=== PATIENT | male | born 2000 | race Caucasian/White ===

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

== ENCOUNTER → 2019-02-01 | Outpatient (REF) | payer OTHER | LOC: M LAB REF 13:07 | PROVIDERS: ATTEND Nurse Practitioner Pediatrics | DX: R19.5 Other fecal abnormalities (principal) ==

== ENCOUNTER → 2019-02-05 | Outpatient (CLI) | payer BC, OTHER ==
--- NOTE | 2019-02-06 03:31 | REP ---
Clinical: Fecal stasis. Technique: Two views of the abdomen and pelvis. Findings: Fecal impaction at the rectum is suggested and should be correlated clinically. No evidence for bowel obstruction or perforation. No organomegaly. No abnormal calcifications. Skeletal structures are intact. Impression: Findings cannot exclude fecal impaction at the rectum. Electronically Signed by Anthony Bernard MD 02/06/2019 03:23 A
== END ==
LOC: M RAD 13:54
PROVIDERS: ATTEND Nurse Practitioner Pediatrics
DX: N50.89 Other specified disorders of the male genital organs (principal); R19.5 Other fecal abnormalities

== ENCOUNTER → 2019-02-08 | Outpatient (CLI) | payer BC, OTHER ==
--- NOTE | 2019-02-09 05:05 | REP ---
Clinical: Enlarges left testicle. Technique: Real time varner scale and color Doppler evaluation using linear high frequency transducer. Findings: The bilateral testicles are normal in contour, size, echogenicity, and vascularity without intratesticular mass lesion, infectious/inflammatory process, or torsion. Right epididymal head cyst measures 14 x 7 x 8 mm. Left epididymal head cyst measures 1 x 1 x 2 mm. No significant hydrocele. No varicocele. Right testicle measures 5.2 x 2.4 x 2.8 cm. Left testicle measures 5.1 x 2.9 x 3.0 cm. Impression: Right epididymal head cyst. Otherwise essentially normal examination. Electronically Signed by Anthony Bernard MD 02/09/2019 04:57 A
== END ==
LOC: M RAD 15:48
PROVIDERS: ATTEND Nurse Practitioner Pediatrics
DX: N50.3 Cyst of epididymis (principal)

== ENCOUNTER → 2019-04-12 | Outpatient (CLI) | payer BC, OTHER ==
[2019-04-12 12:05] LABS: BASO % 0.5 % (0.0-1.0); EOS # 0.2 10^3/uL (0.0-0.50); EOS % 1.8 % (0.0-3.0); HEMATOCRIT 43.4 % (42.0-52.0); HEMOGLOBIN 14.1 g/dl (13.5-17.5); LYMPH # 3.1 10^3/uL (1.5-6.5); MEAN CORPUSCULAR HEMOGLOBIN 27.6 pg (27.0-33.0); MEAN CORPUSCULAR HGB CONC 32.5 g/dl (32.0-36.5); MEAN CORPUSCULAR VOLUME 85.1 fl (80.0-96.0); MONO # 0.7 10^3/uL (0.0-0.8); MONO % 8.7 % (0.0-5.0); NEUTROPHILS # 4.3 10^3/uL (1.8-7.7); NEUTROPHILS % 51.3 % (36.0-66.0); PLATELET COUNT, AUTOMATED 287 10^3/uL (150-450); WHITE BLOOD COUNT 8.4 10^3/uL (4.0-10.0)
[2019-04-12 12:42] LABS: ALT/SGPT 36 U/L (12-78); BILIRUBIN,TOTAL 0.3 MG/DL (0.2-1.0); BLOOD UREA NITROGEN 9 MG/DL (7-18); CALCIUM LEVEL 9.5 MG/DL (8.5-10.1); CARBON DIOXIDE LEVEL 30 MEQ/L (21-32); CHLORIDE LEVEL 104 MEQ/L (98-107); CHOLESTEROL LEVEL 186 MG/DL (<200); CREATININE FOR GFR 0.94 MG/DL (0.70-1.30); FREE T4 1.26 NG/DL (0.78-1.33); GLUCOSE, FASTING 89 MG/DL (70-100); HDL CHOLESTEROL 25 MG/DL (>40); NON-HDL-C 161 MG/DL; POTASSIUM SERUM 4.3 MEQ/L (3.5-5.1); SODIUM LEVEL 139 MEQ/L (136-145); TOTAL 25(OH) VITAMIN D 13.5 NG/ML (30.0-100.0); TOTAL PROTEIN 7.3 GM/DL (6.4-8.2); TRIGLYCERIDES LEVEL 696 MG/DL (<150)
== END ==
LOC: M LABDRWAD 09:11
PROVIDERS: ATTEND Nurse Practitioner Pediatrics
DX: Z68.54 Body mass index [BMI] pediatric, 95th percentile for age to less than 120% of the 95th percentile for age (principal)

== ENCOUNTER 2021-09-08 17:58 | Emergency (ER) | payer BC, OTHER ==
[~2021-09-08] VITALS: Ht 177.8 cm; Wt 102.0 kg
[2021-09-08] MEDS ORDERED: ZOLO25TA PO (18:17)
[2021-09-08 19:12] LABS: HEMATOCRIT 41.2 % (42.0-52.0); MEAN CORPUSCULAR HEMOGLOBIN 26.7 pg (27.0-33.0); MEAN CORPUSCULAR HGB CONC 31.6 g/dl (32.0-36.5); MEAN CORPUSCULAR VOLUME 84.6 fl (80.0-96.0); PLATELET COUNT, AUTOMATED 284 10^3/uL (150-450); RED BLOOD COUNT 4.87 10^6/uL (4.30-6.10); WHITE BLOOD COUNT 8.7 10^3/uL (4.0-10.0)
[2021-09-08 19:30] LABS: AMPHETAMINES LEVEL URINE NEGATIVE (NEGATIVE); BARBITURATES URINE NEGATIVE (NEGATIVE); BENZODIAZEPINES URINE NEGATIVE (NEGATIVE); CANNABINOIDS URINE NEGATIVE (NEGATIVE); COCAINE METABOLITE URINE NEGATIVE (NEGATIVE); METHADONE URINE NEGATIVE (NEGATIVE); OPIATES URINE NEGATIVE (NEGATIVE); PHENCYCLIDINE URINE NEGATIVE (NEGATIVE)
[2021-09-08 19:48] LABS: RSV AMPLIFICATION NEGATIVE (NEGATIVE)
[2021-09-08 20:00] LABS: ACETAMINOPHEN LEVEL < 2.0 UG/ML (10.0-30.0); ALT/SGPT 30 U/L (12-78); BILIRUBIN,DIRECT 0.1 MG/DL (0.0-0.2); BILIRUBIN,TOTAL 0.5 MG/DL (0.2-1.0); BLOOD UREA NITROGEN 13 MG/DL (7-18); CARBON DIOXIDE LEVEL 28 MEQ/L (21-32); CHLORIDE LEVEL 104 MEQ/L (98-107); CREATININE FOR GFR 0.84 MG/DL (0.70-1.30); ETHYL ALCOHOL (ETHANOL) < 0.003 % (0.000-0.010); GLOMERULAR FILTRATION RATE > 60.0 (>60); GLUCOSE, FASTING 82 MG/DL (70-100); POTASSIUM SERUM 4.1 MEQ/L (3.5-5.1); SALICYLATE LEVEL < 1.7 MG/DL (5.0-30.0); SODIUM LEVEL 138 MEQ/L (136-145); THYROID STIMULATING HORMONE 0.874 uIU/ML (0.358-3.740); TOTAL PROTEIN 7.6 GM/DL (6.4-8.2)
[2021-09-09 00:11] VITALS: BP 147/72
== END 2021-09-09 00:13 | disposition home or self-care (01) ==
LOC: M ED 17:58
DX: F32.9 Major depressive disorder, single episode, unspecified (principal); F12.10 Cannabis abuse, uncomplicated

== ENCOUNTER → 2022-09-29 | Outpatient (CLI) | payer BC, OTHER ==
[~2022-09-29] MED LIST: ZOLO25TA PO
== END ==
LOC: M SLEEP 20:00
PROVIDERS: ATTEND Physician Assistant
DX: G47.33 Obstructive sleep apnea (adult) (pediatric) (principal); R40.0 Somnolence

== ENCOUNTER 2022-12-08 22:23 | Emergency (ER) | payer BC, OTHER ==
[~2022-12-08] VITALS: Ht 172.7 cm; Wt 140.9 kg
[2022-12-08 23:37] LABS: RSV AMPLIFICATION NEGATIVE (NEGATIVE)
[2022-12-09] MEDS ORDERED: ACETAMINOPHEN TAB 650MG DOSE (2X325MG) PO ONE (00:30)
[2022-12-09 01:43] LABS: BASO % 0.3 % (0.0-1.0); EOS # 0.1 10^3/uL (0.0-0.5); EOS % 0.4 % (0.0-3.0); HEMATOCRIT 36.3 % (42.0-52.0); HEMOGLOBIN 11.8 g/dl (13.5-17.5); LYMPH # 1.6 10^3/uL (1.5-5.0); LYMPH % 12.9 % (24.0-44.0); MEAN CORPUSCULAR HEMOGLOBIN 27.3 pg (27.0-33.0); MEAN CORPUSCULAR HGB CONC 32.5 g/dl (32.0-36.5); MEAN CORPUSCULAR VOLUME 83.8 fl (80.0-96.0); MONO # 1.3 10^3/uL (0.0-0.8); MONO % 10.5 % (2.0-8.0); NEUTROPHILS # 9.3 10^3/uL (1.5-8.5); NEUTROPHILS % 75.1 % (36.0-66.0); PLATELET COUNT, AUTOMATED 252 10^3/uL (150-450); RED BLOOD COUNT 4.33 10^6/uL (4.30-6.10); WHITE BLOOD COUNT 12.5 10^3/uL (4.0-10.0)
[2022-12-09 02:10] LABS: ALBUMIN 3.6 G/DL (3.2-5.2); ALKALINE PHOSPHATASE 63 U/L (46-116); ALT/SGPT 22 U/L (7.0-40); AST/SGOT 29 U/L (<34); BILIRUBIN,TOTAL 0.5 MG/DL (0.3-1.2); BLOOD UREA NITROGEN 7 MG/DL (9-23); CALCIUM LEVEL 8.4 MG/DL (8.5-10.1); CARBON DIOXIDE LEVEL 23 MMOL/L (20-31); CHLORIDE LEVEL 103 MMOL/L (98-107); CREATININE FOR GFR 0.96 MG/DL (0.70-1.30); GLOMERULAR FILTRATION RATE > 60.0 (>60); GLUCOSE, FASTING 106 MG/DL (60-100); POTASSIUM SERUM 3.8 MMOL/L (3.5-5.1); SODIUM LEVEL 137 MMOL/L (136-145)
[2022-12-09] MEDS ORDERED: NS 1,000 ML IV ONE (02:20)
[2022-12-09] MEDS ORDERED: AMPICILLIN SOD/SULBACTAM SOD 3 GM in D5W MINI-BAG PLUS 100 ML IV ONE (02:25)
[2022-12-09 03:15] VITALS: BP 115/56
[2022-12-09] MEDS ORDERED: PENI500T PO (03:15)
== END 2022-12-09 03:35 | disposition home or self-care (01) ==
LOC: M ED 22:23
DX: J02.0 Streptococcal pharyngitis (principal); J01.90 Acute sinusitis, unspecified
CPT/HCPCS: 71046; 80053; 81001; 83605; 85025; 87040; 87631; 87880; 96365; 99284; J0295

== ENCOUNTER → 2023-05-03 | Outpatient (REF) | payer BC, OTHER ==
[~2023-05-03] MED LIST changes: +PENI500T PO
[2023-05-03 17:29] LABS: THYROID STIMULATING HORMONE 1.829 uIU/ML (0.55-4.78)
[2023-05-03 17:30] LABS: ALBUMIN 4.2 G/DL (3.2-5.2); ALKALINE PHOSPHATASE 88 U/L (46-116); ALT/SGPT 37 U/L (7.0-40); AST/SGOT 18 U/L (<34); BILIRUBIN,TOTAL 0.4 MG/DL (0.3-1.2); BLOOD UREA NITROGEN 10 MG/DL (9-23); CALCIUM LEVEL 9.6 MG/DL (8.5-10.1); CARBON DIOXIDE LEVEL 27 MMOL/L (20-31); CHLORIDE LEVEL 103 MMOL/L (98-107); CHOLESTEROL LEVEL 171 MG/DL (<200); CHOLESTEROL RISK RATIO 5.31 (<5); CREATININE FOR GFR 0.81 MG/DL (0.70-1.30); GLOMERULAR FILTRATION RATE > 60.0 (>60); GLUCOSE, FASTING 80 MG/DL (60-100); HDL CHOLESTEROL 32.2 MG/DL (>40); LDL CHOLESTEROL 79.2 MG/DL (<100); NON-HDL-C 138.8 MG/DL; POTASSIUM SERUM 4.3 MMOL/L (3.5-5.1); SODIUM LEVEL 139 MMOL/L (136-145); TOTAL PROTEIN 7.5 G/DL (5.7-8.2); TRIGLYCERIDES LEVEL 298 MG/DL (<150)
== END ==
LOC: M LAB REF 16:09
PROVIDERS: ATTEND Pediatrics
DX: E66.01 Morbid (severe) obesity due to excess calories (principal); Z68.43 Body mass index [BMI] 50.0-59.9, adult

== ENCOUNTER → 2024-02-22 | Outpatient (REF) | payer OTHER, BC ==
[2024-02-22 19:32] LABS: HEMOGLOBIN A1c 4.8 % (4.0-6.0)
[2024-02-22 19:52] LABS: THYROID STIMULATING HORMONE 2.001 uIU/ML (0.55-4.78)
[2024-02-22 20:01] LABS: ALKALINE PHOSPHATASE 76 U/L (46-116); ALT/SGPT 29 U/L (7.0-40); AST/SGOT 13 U/L (<34); BILIRUBIN,TOTAL < 0.2 MG/DL (0.3-1.2); BLOOD UREA NITROGEN 11 MG/DL (9-23); CALCIUM LEVEL 9.4 MG/DL (8.5-10.1); CARBON DIOXIDE LEVEL 26 MMOL/L (20-31); CHLORIDE LEVEL 106 MMOL/L (98-107); CREATININE FOR GFR 0.81 MG/DL (0.70-1.30); GLOMERULAR FILTRATION RATE > 60.0 (>60); GLUCOSE, FASTING 78 MG/DL (60-100); POTASSIUM SERUM 4.6 MMOL/L (3.5-5.1); SODIUM LEVEL 138 MMOL/L (136-145); TOTAL PROTEIN 6.7 G/DL (5.7-8.2)
== END ==
LOC: M LAB REF 16:12
PROVIDERS: ATTEND Pediatrics
DX: E66.01 Morbid (severe) obesity due to excess calories (principal); Z68.43 Body mass index [BMI] 50.0-59.9, adult

== ENCOUNTER → 2024-04-08 | Outpatient (CLI) | payer BC, OTHER ==
[2024-04-08 14:53] LABS: ALKALINE PHOSPHATASE 73 U/L (46-116); ALT/SGPT 30 U/L (7.0-40); AST/SGOT 16 U/L (<34); BILIRUBIN,TOTAL 0.4 MG/DL (0.3-1.2); BLOOD UREA NITROGEN 11 MG/DL (9-23); CALCIUM LEVEL 9.4 MG/DL (8.5-10.1); CARBON DIOXIDE LEVEL 27 MMOL/L (20-31); CHLORIDE LEVEL 106 MMOL/L (98-107); CREATININE FOR GFR 0.84 MG/DL (0.70-1.30); GLOMERULAR FILTRATION RATE > 60.0 (>60); GLUCOSE, FASTING 79 MG/DL (60-100); POTASSIUM SERUM 4.2 MMOL/L (3.5-5.1); SODIUM LEVEL 138 MMOL/L (136-145)
[2024-04-08 14:54] LABS: TESTOSTERONE 137 NG/DL (241-827)
== END ==
LOC: M LAB 13:53
PROVIDERS: ATTEND Nurse Practitioner Psychiatric/Mental Health
DX: F90.2 Attention-deficit hyperactivity disorder, combined type (principal)

== ENCOUNTER → 2024-05-11 | Outpatient (REF) | payer BC, OTHER ==
[2024-05-11 14:45] LABS: PERCENT SATURATION 11.6 % (19.7-50.0)
[2024-05-11 14:51] LABS: FREE T4 1.33 NG/DL (0.89-1.76)
[2024-05-11 14:52] LABS: FOLLICLE STIMULATING HORMONE 1.5 mIU/ML (1.4-18.1); LUTEINIZING HORMONE 1.8 mIU/ML (1.5-9.3); THYROID STIMULATING HORMONE 1.715 uIU/ML (0.55-4.78)
[2024-05-11 14:53] LABS: PROLACTIN 15.31 NG/ML (2.1-17.7)
[2024-05-12 17:48] LABS: CORTISOL AM 14.9 UG/DL (4.3-22.4)
== END ==
LOC: M LAB REF 12:36
PROVIDERS: ATTEND Pediatrics
DX: R89.1 Abnormal level of hormones in specimens from other organs, systems and tissues (principal)

== ENCOUNTER → 2024-06-06 | Outpatient (REF) | payer OTHER, BC ==
[2024-06-06 17:20] LABS: APPEARANCE, URINE MANUAL TURBID (CLEAR); COLOR, URINE MANUAL YELLOW (YELLOW)
[2024-06-06 17:22] LABS: BILIRUBIN, URINE MANUAL NEGATIVE (NEGATIVE); BLOOD URINE MANUAL NEGATIVE (NEGATIVE); GLUCOSE, URINE (UA) MANUAL NEGATIVE (NEGATIVE); KETONE, URINE MANUAL NEGATIVE (NEGATIVE); LEUKOCYTE ESTERASE, URINE MAN NEGATIVE (NEGATIVE); NITRITE, URINE MANUAL NEGATIVE (NEGATIVE); PROTEIN, URINE MANUAL TRACE mg/dL (NEGATIVE); UROBILINOGEN, URINE MANUAL NORMAL (NORMAL)
[2024-06-06 17:31] LABS: AMORPHOUS SEDIMENT, URINE LARGE AMOUNT (NEGATIVE); BACTERIA, URINE NONE SEEN; RBC, URINE 0-3 /hpf (0-3); SQUAMOUS EPITHELIAL CELL URINE NONE SEEN /hpf (SMALL AMT); WBC, URINE 0-3 /hpf (0-3)
[2024-06-06 18:27] LABS: BASO % 0.4 % (0.0-1.0); EOS # 0.1 10^3/uL (0.0-0.5); EOS % 0.8 % (0.0-3.0); HEMATOCRIT 43.2 % (42.0-52.0); HEMOGLOBIN 13.8 g/dl (13.5-17.5); LYMPH # 2.1 10^3/uL (1.5-5.0); LYMPH % 24.7 % (24.0-44.0); MEAN CORPUSCULAR HEMOGLOBIN 27.4 pg (27.0-33.0); MEAN CORPUSCULAR HGB CONC 31.9 g/dl (32.0-36.5); MEAN CORPUSCULAR VOLUME 85.7 fl (80.0-96.0); MONO # 0.7 10^3/uL (0.0-0.8); MONO % 8.6 % (2.0-8.0); NEUTROPHILS # 5.5 10^3/uL (1.5-8.5); PLATELET COUNT, AUTOMATED 290 10^3/uL (150-450); RED BLOOD COUNT 5.04 10^6/uL (4.30-6.10); WHITE BLOOD COUNT 8.4 10^3/uL (4.0-10.0)
[2024-06-06 18:52] LABS: CHOLESTEROL RISK RATIO 6.36 (<5); HDL CHOLESTEROL 26.7 MG/DL (>40); LDL CHOLESTEROL 81.9 MG/DL (<100); NON-HDL-C 143.3 MG/DL
[2024-06-06 18:54] LABS: FERRITIN 65.8 NG/ML (10.5-307.3); IMMUNOGLOBULIN A 296.3 MG/DL (40-350)
== END ==
LOC: M LAB REF 16:12
PROVIDERS: ATTEND Pediatrics
DX: E61.1 Iron deficiency (principal); R89.1 Abnormal level of hormones in specimens from other organs, systems and tissues

== ENCOUNTER 2024-09-28 09:46 | Day surgery (SDC) | payer BC ==
[~2024-09-28] VITALS: Ht 172.7 cm; Wt 133.6 kg
[~2024-09-28 09:46] MED LIST changes: +CLOM50TA28 PO; +FERR325T82 PO; +FLUO-365 PO; +LISD70CA PO
[2024-09-28 13:13] VITALS: TEMP 98.9
[2024-09-28 13:40] VITALS: BP 118/68; O2SAT 100
== END 2024-09-28 13:57 | disposition home or self-care (01) ==
LOC: M OPP 09:46
PROVIDERS: ATTEND Surgery
DX: D50.9 Iron deficiency anemia, unspecified (principal); K64.0 First degree hemorrhoids; K29.70 Gastritis, unspecified, without bleeding; G47.30 Sleep apnea, unspecified; Z79.899 Other long term (current) drug therapy

== ENCOUNTER → 2025-09-03 | Outpatient (CLI) | payer OTHER ==
[2025-09-03 11:09] LABS: BASO # 0.0 10^3/uL (0.0-0.2); BASO % 0.6 % (0.0-1.0); EOS # 0.1 10^3/uL (0.0-0.5); EOS % 1.3 % (0.0-3.0); LYMPH # 2.1 10^3/uL (1.5-5.0); LYMPH % 30.5 % (24.0-44.0); MONO # 0.5 10^3/uL (0.0-0.8); MONO % 7.7 % (2.0-8.0); NEUTROPHILS # 4.1 10^3/uL (1.5-8.5); NEUTROPHILS % 58.9 % (36.0-66.0); PLATELET COUNT, AUTOMATED 283 10^3/uL (150-450)
[2025-09-03 14:25] LABS: ALT/SGPT 61 U/L (7.0-40); AST/SGOT 29 U/L (<34); CALCIUM LEVEL 9.8 MG/DL (8.5-10.1); CARBON DIOXIDE LEVEL 31 MMOL/L (20-31); CHLORIDE LEVEL 102 MMOL/L (98-107); CREATININE FOR GFR 0.91 MG/DL (0.70-1.30); GLOMERULAR FILTRATION RATE > 90.0 (>60); POTASSIUM SERUM 4.5 MMOL/L (3.5-5.1); SODIUM LEVEL 141 MMOL/L (136-145)
== END ==
LOC: M LAB 10:22
PROVIDERS: ATTEND Nurse Practitioner Psychiatric/Mental Health
DX: F90.2 Attention-deficit hyperactivity disorder, combined type (principal); F33.9 Major depressive disorder, recurrent, unspecified